=== PATIENT | female | born 1980 | race Caucasian/White ===

== ENCOUNTER 2018-03-17 14:12 | Inpatient (IN) | payer OTHER, MEDICAID ==
[2018-03-17 15:14] LABS: APPEARANCE,URINE CLOUDY; BILIRUBIN,URINE NEGATIVE (NEGATIVE); COLOR,URINE YELLOW; GLUCOSE, URINE NEGATIVE (NEGATIVE); KETONES,URINE NEGATIVE (NEGATIVE); LEUKOCYTE ESTERASE,URINE LARGE (NEGATIVE); NITRITE,URINE NEGATIVE (NEGATIVE); PROTEIN,URINE NEGATIVE (NEGATIVE); URINE SPECIFIC GRAVITY 1.008; UROBILINOGEN,URINE NEGATIVE mg/dL (<2.0)
[2018-03-17] MEDS ORDERED: RINGERS SOLUTION,LACTATED 1,000 ML IV ONE (15:44)
[2018-03-17 15:53] LABS: AMNISURE (ROM) NEGATIVE (NEGATIVE)
[2018-03-17 16:10] LABS: URINE AMPHETAMINES SCREEN NEGATIVE; URINE BARBITURATES SCREEN NEGATIVE; URINE BENZODIAZEPINES SCREEN NEGATIVE; URINE COCAINE SCREEN NEGATIVE; URINE MARIJUANA (THC) SCREEN NEGATIVE; URINE METHADONE SCREEN NEGATIVE; URINE PHENCYCLIDINE SCREEN NEGATIVE
[2018-03-17] MEDS ORDERED: RINGERS SOLUTION,LACTATED 1,000 ML IV PRN (17:11)
[2018-03-17] MEDS ORDERED: OXYTOCIN/NORMAL SALINE 20 UNIT/1,000 ML RTUINJ IV PRN (17:11)
[2018-03-17] MEDS ORDERED: DINOPROSTONE 10 MG VAGINAL INSERT.SR PV PRN (17:11)
[2018-03-17] MEDS ORDERED: PENICILLIN G POTASSIUM 5,000,000 UNIT in DEXTROSE 5%-WATER 100 ML IV ONE (17:11)
[2018-03-17] MEDS ORDERED: RINGERS SOLUTION,LACTATED 300 ML IV ONE (17:11)
--- NOTE | 2018-03-17 17:22 | Admission Physical ---
Datetime Report Generated by CPN: 03/17/2018 17:22 CURRENT ADMISSION Hx Assessment: The History has been Reviewed and is Current Chief Complaint: Sent from OB Office for Evaluation and Treatment - Please Specify Chief Complaint Other: sent for CLAUDIO of 4, then had 4 min decleration Indication for Induction: Maternal Diabetes; Oligohydramnios Admit Impression : Term, Intrauterine ; No Active Labor; Intact Membranes; Induction of Labor Admit Plan: Admit to Unit; Initiate Labor Induction Protocol ALLERGIES Medication Allergies: Yes Medication Allergies: cyclines (acne medications) Latex: No Latex Allergies Food Allergies: none OBSTETRICAL HISTORY EDC: 03/27/2018 00:00 : 1 Para: 0 Term: 0 : 0 SAB: 0 IAB: 0 Ectopic: 0 Livin Cesareans: 0 VBACs: 0 Multiple Births: 0 SEE RECORDS Alcohol: No Marijuana : No Cocaine: No Other Illicit Drugs: No Cigarettes: Never Smoker. [id number] PHYSICAL EXAM General: Normal HEENT: Normal Neurologic: Normal Thyroid: Deferred Heart: Normal Lungs: Normal Breast: Normal Back: Normal Abdomen: Normal Genitourinary Exam: Normal Extremities: Normal DTRs: Normal Pelvic Type: Adequate Vital Signs: Reviewed VAGINAL EXAM Dilatation: 2 Effacement: 60 Station: -2 Contraction Comments: rare MEMBRANES Membranes: Intact FETUS A EGA: 38.4 Monitoring: External US FHR- Baseline: 135 Variability: Moderate 6-25bpm Accelerations: 15X15 Decelerations: Variable FHR Category: Category I Estimated Weight (gm): 3900 Presentation: Vertex Admit Comment: Sent in from office for CLAUDIO of 4.31, had decel here while monitoring. Discussed plan will admit for induction, using cooks cath and pitocin. GBS +, pcn AMA, GDM Hx: scoliosis, will have anesthsia see patient PLANS FOR LABOR AND DELIVERY Labor and Delivery: Plan Pain Management: Natural Feeding Preference: Breast Benefit of Breast Feed Discussed: Yes Circumcision: No INFORMED CONSENT Assignment: Yuridia Cordova MD Signature: with User ID: [email or web address] : with User ID: [email or web address]
[2018-03-17] MEDS ORDERED: PENICILLIN G-K 5 MILLION UNIT VIAL ONE ×2 (18:01→20:11)
[2018-03-17 18:27] LABS: HEMATOCRIT 36.6 % (36.0-47.0); HEMOGLOBIN 12.5 g/dL (12.0-15.5); MEAN CORPUSCULAR HEMOGLOBIN 28.6 pg (27.0-33.4); MEAN CORPUSCULAR HGB CONC 34.2 g/dL (32.0-36.0); MEAN CORPUSCULAR VOLUME 84 fl (80-97); PLATELET COUNT 200 10^3/uL (150-450); RED BLOOD COUNT 4.38 10^6/uL (3.72-5.28); RED CELL DISTRIBUTION WIDTH 15.1 % (11.5-14.0); WHITE BLOOD COUNT 12.6 10^3/uL (4.0-10.5)
[2018-03-17] MEDS ORDERED: MISOPROSTOL 0.2 MG TABLET ONE (19:07)
[2018-03-17] MEDS ORDERED: LIDOCAINE 1% INJ-PF (10 MG/ML) 30 ML SDV ONE (19:07)
[2018-03-17] MEDS ORDERED: OXYTOCIN/NORMAL SALINE 20 UNIT/1,000 ML RTUINJ ONE (19:07)
[2018-03-17] MEDS ORDERED: NALBUPHINE HCL INJ 10 MG/1 ML AMPULE INJ ONE (19:48)
[2018-03-17] MEDS ORDERED: NALBUPHINE HCL INJ 10 MG/1 ML AMPULE ONE (19:50)
[2018-03-17] MEDS: PENICILLIN G POTASSIUM 2,500,000 UNIT in DEXTROSE 5%-WATER 50 ML IV SCH (22:10)
[2018-03-17] MEDS ORDERED: FENTANYL/BUPIVACAINE/NS/PF 300 MCG/150 ML RTUINJ EPI ONE (23:50)
[2018-03-17] MEDS ORDERED: LIDOCAINE 1.5%/EPINEPHRINE INJ-PF 30 ML SDV ONE (23:50)
[2018-03-17] MEDS ORDERED: BUPIVACAINE HCL 0.25 % INJ/PF (2.5 MG/1 ML) 30 ML VIAL ONE (23:50)
[2018-03-17] MEDS ORDERED: EPHEDRINE SULFATE INJ 50 MG/1 ML AMPULE ONE (23:50)
[2018-03-18] MEDS ORDERED: PENICILLIN G-K 5 MILLION UNIT VIAL ONE ×3 (02:03→10:08)
[2018-03-18] MEDS: PENICILLIN G POTASSIUM 2,500,000 UNIT in DEXTROSE 5%-WATER 50 ML IV SCH ×2 (02:05→06:24)
--- NOTE | 2018-03-18 08:36 | L&D Progress Notes ---
PROGRESS NOTES Datetime Report Generated by CPN: 03/18/2018 08:36 PROGRESS NOTE Impression: Normal Progression of Labor Plan: Continue Present Management; Anticipate Vaginal Delivery Informed Consent Obtained: Vaginal Delivery; Risks, Benefits and Alternatives Discussed Vital Signs : Reviewed Comment: 37 yo admitted yesterday for oligo 4.31 EDC /!8 by LMP allergies: cyclines GDM Oligohydramnios GBS positive AMA epidural in place EFW 7 lbs abdomen nontender FHTs reactive c/c/+1 ctxs 3-4 min apart anticipate VAGINAL EXAM Dilatation: 9 Dilatation: 2 Effacement: 100 Effacement: 60 Station: 1 Station: -2 Contractions: rare MEMBRANES Membranes: Ruptured Membranes: Intact FETUS A Monitoring: External US Variability: Moderate 6-25bpm Accelerations: 15X15 Decelerations: None FHR Category: Category I : 38.5 Estimated Weight (gm): 3900 Presentation: Vertex SIGNATURE SIGNATURE: [id number];[id number] SIGNATURE: [id number] Assignment: Yuridia Cordova MD Signature: with User ID: [email or web address] : with User ID: [email or web address]
[2018-03-18] MEDS ORDERED: OXYTOCIN/NORMAL SALINE 20 UNIT/1,000 ML RTUINJ ONE (12:41)
[2018-03-18] MEDS ORDERED: BENZOCAINE/MENTHOL AEROSOL SPRAY 56 ML TOP PRN (14:09)
[2018-03-18] MEDS ORDERED: OXYTOCIN/NORMAL SALINE 20 UNIT/1,000 ML RTUINJ IV PRN (14:09)
[2018-03-18] MEDS ORDERED: MEASLES,MUMPS&RUBELLA VACC/PF 0.5 ML VIAL SUBCUT PRN (14:09)
[2018-03-18] MEDS ORDERED: ZOLPIDEM TARTRATE 5 MG TABLET PO PRN (14:09)
[2018-03-18] MEDS ORDERED: DIBUCAINE 1% OINTMENT 28 GM TP PRN (14:09)
[2018-03-18] MEDS ORDERED: DIPH/PERTUSS(ACELL)/TETANUS VAC/PF 0.5 ML SYR (>=10YO) IM PRN (14:09)
--- NOTE | 2018-03-18 15:22 | Delivery Summary ---
Del Sum A-C Datetime Report Generated by CPN: 03/18/2018 15:22 DELIVERY PERSONNEL DELIVERY PERSONNEL: [id number] Delivery Doctor:: Jonny Root CNM Labor and Delivery Nurse:: PHILLIP Thorpe Labor and Delivery Nurse:: PHILLIP Odom Cable Spooler/NUCLEAR DESIGN ENGINEER: Linda ROCK Strong II MATERNAL INFORMATION Delivery Anesthesia: Epidural Medications After Delivery: Pitocin Bolus-Please Comment; Pitocin Drip 20 Units/1000ml NSS Meds After Delivery Comment: 20 Units Pitocin in 1000 ML NS bolus Estimated Blood Loss (ml): 250 Maternal Complications: None LABOR SUMMARY EDC: 03/27/2018 00:00 No. Babies in Womb: 1 Attempted: Yes Labor Anesthesia: Epidural LABOR INFORMATION Reason for Induction: Maternal Diabetes; Oligohydramnios Onset of Labor: 03/18/2018 00:22 Complete Dilatation: 03/18/2018 08:22 Oxytocin: Induction Group B Beta Strep: Positive Antibiotics # of Doses: 4 Antibiotics Time of Last Dose: 1815/2210/0205/0624/1012 Name of Antibiotic Given: PCN Steroids Given: None Reason Steroids Not Administered: Not Applicable MEMBRANES Membranes Rupture Method: Spontaneous Rupture of Membranes: 03/18/2018 04:37 Length of Rupture (hr): 7.92 Amniotic Fluid Color: Bloody Amniotic Fluid Amount: Small STAGES OF LABOR Stage 1 hr: 8 Stage 1 min: 0 Stage 2 hr: 4 Stage 2 min: 10 Stage 3 hr: 0 Stage 3 min: 12 Total Time in Labor hr: 12 Total Time in Labor min: 22 VAGINAL DELIVERY Episiotomy: None Laceration #1: Perineal Laceration Extension #1: Second Degree CSECTION DELIVERY Primary Indication: N/A Secondary Indication: N/A CSection Incidence: N/A Labor: N/A Elective: N/A CSection Incision: N/A BABY A INFORMATION Delivery Date/Time: 03/18/2018 12:32 Method of Delivery: Vaginal Born in Route : No : N/A Forceps: N/A Vacuum Extraction: N/A Shoulder Dystocia : No PRESENTATION/POSITION BABY A Presentation: Cephalic Cephalic Presentation: Vertex Vertex Position: Left Occipital Anterior PLACENTA INFORMATION BABY A Placenta Delivery Time : 03/18/2018 12:44 Placenta Method of Delivery: Spontaneous Placenta Status: Delivered SCORES BABY A Heart Rate 1 min: >100 bpm Resp Effort 1 min: Good Cry Reflex Irritability 1 min: Cough or Sneeze or Pulls Away Muscle Tone 1 min: Active Motion Color 1 min: Blue/Pale Resuscitation Effort 1 min: Tactile Stimulation SCORE 1 MIN: 8 Heart Rate 5 min: >100 bpm Resp Effort 5 min: Good Cry Reflex Irritability 5 min: Cough or Sneeze or Pulls Away Muscle Tone 5 min: Active Motion Color 5 min: Body Victoria, Extremities Blue Resuscitation Effort 5 min: N/A SCORE 5 MIN: 9 Resuscitation Effort 10 min: N/A INFANT INFORMATION BABY A Gestational Age at Delivery: 38.5 Gestational Status: Early Term- 37- 38.6 Weeks Infant Outcome : Liveborn Infant Condition : Stable Infant Sex: Male IDENTIFICATION BABY A Verification Date/Time: 03/18/2018 12:53 ID Band Number: [id number] Mother's Name Verified: Yes Infant RN Verifying : A Robert RN [place] [facility] WEIGHT/LENGTH BABY A Birthweight (gm): 2930 Weight (lb): 6 Infant Weight (oz): 7 Infant Length (in): 19.00 Length (cm): 48.26 CORD INFORMATION BABY A No. Cord Vessels: 3 Nuchal Cord : N/A Cord Blood Taken: Yes-For Eval (Mom's Blood Type - or O+) Suction: Mouth; Nose ASSESSMENT BABY A Infant Complications: None Physical Findings at Delivery: Caput Succedaneum; Molding of the Head Respirations: Appears Normal Skin to Skin: Yes Mask Designer/ALS Called : No Infant Care By: D [place]av[place] R[facility] Transferred To: Remains with Mother BABY B INFORMATION : N/A
[2018-03-18] MEDS: FERROUS SULFATE 325 MG TABLET PO SCH (17:42)
[2018-03-18] MEDS: DOCUSATE SODIUM 100 MG CAPSULE PO SCH (17:42)
[2018-03-18] MEDS: IBUPROFEN 800 MG TABLET PO SCH (17:42)
[2018-03-19] MEDS: IBUPROFEN 800 MG TABLET PO SCH ×3 (02:25→18:15)
[2018-03-19 07:00] LABS: HEMATOCRIT 32.8 % (36.0-47.0); MEAN CORPUSCULAR HEMOGLOBIN 28.4 pg (27.0-33.4); MEAN CORPUSCULAR HGB CONC 33.6 g/dL (32.0-36.0); MEAN CORPUSCULAR VOLUME 85 fl (80-97); PLATELET COUNT 173 10^3/uL (150-450); RED BLOOD COUNT 3.88 10^6/uL (3.72-5.28); RED CELL DISTRIBUTION WIDTH 14.9 % (11.5-14.0); WHITE BLOOD COUNT 18.2 10^3/uL (4.0-10.5)
--- NOTE | 2018-03-19 09:05 | PDOC PROGRESS REPORT ---
Subjective-OB Progress Note for:: 03/19/18 Subjective: pt bonding well with ff@u-1 mild lochia no complaints Physical Exam (OB) Vital Signs: Temp Pulse Resp BP Pulse Ox 98.1 F 72 18 117/80 96 03/19/18 07:41 03/19/18 07:41 03/19/18 07:41 03/19/18 07:41 03/19/18 07:41 Intake & Output 03/18/18 03/19/18 03/20/18 06:59 06:59 06:59 Weight 80.1 kg - Lochia Lochia Amount: Small 10-25 ml Lochia Color: Rubra/Red - Abdomen Description: Soft, Round Hernia Present: No Fundal Description: Firm, Midline Fundal Height: u/u - u/2 Objective-Diagnostic Laboratory: 03/19/18 06:50 03/19/18 06:50 WBC 18.2 H RBC 3.88 Hgb 11.0 L Hct 32.8 L MCV 85 MCH 28.4 MCHC 33.6 RDW 14.9 H Plt Count 173
[2018-03-19] MEDS: PRENATAL VITAMIN W DHA CAPSULE PO SCH (09:22)
[2018-03-19] MEDS: FERROUS SULFATE 325 MG TABLET PO SCH ×2 (09:22→18:15)
[2018-03-19] MEDS: SENNOSIDES/DOCUSATE 8.6-50 MG 1 EACH TABLET PO SCH (09:22)
[2018-03-19] MEDS: DOCUSATE SODIUM 100 MG CAPSULE PO SCH ×2 (09:23→18:15)
[2018-03-20] MEDS: IBUPROFEN 800 MG TABLET PO SCH ×2 (02:16→11:50)
[2018-03-20 08:18] VITALS: BP 108/63
--- NOTE | 2018-03-20 08:47 | PDOC DISCHARGE SUMMARY ---
Final Diagnosis Discharge Date: 03/20/18 - Final Diagnosis (1) Elderly primigravida Is this a current diagnosis for this admission?: Yes (3) Oligohydramnios Is this a current diagnosis for this admission?: Yes Discharge Data - Discharge Medication Home Medications: 95/Iron Fum/Folic/Dha [ + Dha Combo Pack] 1 tab PO DAILY Reason(s) for Admission: Induction of Labor Procedures: NST, Ultrasound Intrapartum Procedure(s): Spontaneous Vaginal Delivery Complication(s): Laceration-Vaginal Laceration-Degree: 2nd - Diagnosis Test Laboratory: Temp Pulse Resp BP Pulse Ox 97.4 F 66 16 108/63 99 03/20/18 07:58 03/20/18 07:58 03/20/18 07:58 03/20/18 07:58 03/20/18 07:58 03/17/18 03/17/18 03/19/18 14:30 17:29 06:50 RBC 4.38 3.88 Hgb 12.5 11.0 L Hct 36.6 32.8 L Urine Opiates Screen NEGATIVE - Discharge information/Instructions Discharge Activity: Activity As Tolerated Discharge Diet: Regular Disposition: HOME, SELF-CARE Follow up with: [facility] in: 3
[2018-03-20] MEDS: SENNOSIDES/DOCUSATE 8.6-50 MG 1 EACH TABLET PO SCH (11:48)
[2018-03-20] MEDS: FERROUS SULFATE 325 MG TABLET PO SCH (11:48)
[2018-03-20] MEDS: DOCUSATE SODIUM 100 MG CAPSULE PO SCH (11:48)
[2018-03-20] MEDS: PRENATAL VITAMIN W DHA CAPSULE PO SCH (11:49)
== END 2018-03-20 15:47 | disposition home or self-care (01) | DRG 775 ==
LOC: LC 14:12 → LR 17:16 → 2S 03-18 16:13
PROVIDERS: ADMIT Student in an Organized Health Care Education/Training Program; ATTEND Student in an Organized Health Care Education/Training Program
PROC: 10E0XZZ Delivery of Products of Conception, External Approach (ICD-10-PCS; principal; 2018-03-18)
PROC: 0KQM0ZZ Repair Perineum Muscle, Open Approach (ICD-10-PCS; 2018-03-18)
DX: O41.03X0 Oligohydramnios, third trimester, not applicable or unspecified (principal); O76 Abnormality in fetal heart rate and rhythm complicating labor and delivery; O99.824 Streptococcus B carrier state complicating childbirth; O24.420 Gestational diabetes mellitus in childbirth, diet controlled; O70.1 Second degree perineal laceration during delivery; Z3A.38 38 weeks gestation of pregnancy; Z37.0 Single live birth
CPT/HCPCS: 36415; 80307; 81001; 84112; 85027; 86592; 86850; 86900; 86901; C1726; J2300; J2540; J2590; J3010; J3490

== ENCOUNTER 2020-06-12 00:24 | Emergency (ER) | payer BC, MEDICAID, OTHER ==
[2020-06-12] MEDS ORDERED: KETOROLAC TROMETHAMINE INJ/PF 30 MG/1 ML SDV IV ONE (02:48)
[2020-06-12] MEDS ORDERED: ONDANSETRON HCL INJ/PF 4 MG/2 ML SDV IV ONE (02:48)
[2020-06-12] MEDS ORDERED: NORMAL SALINE 1000 ML 1,000 ML IV ONE (03:10)
--- NOTE | 2020-06-12 03:10 | ER Document Report ---
ED GI/ - General TRAVEL OUTSIDE OF THE [place] IN LAST 30 DAYS: No - Related Data Home Medications: lipitor <HENRRYMANUELAFUENTES Jadyn - Last Filed: 06/12/20 17:29> <WILSONDENISANUPAMA A - Last Filed: 06/17/20 15:38> - General Chief Complaint: Flank Pain Stated Complaint: NAUSEA,VOMITING,ABDOMINAL PAIN Time Seen by Provider: 06/12/20 03:09 Primary Care Provider: KISHOR DOMINGUEZY [facility] [Provider Group] - Follow up as needed Notes: Patient is a 39-year-old female who presents emergency department with a chief complaint of left flank pain. Patient states that her symptoms started around 1030 this evening. Patient has history of kidney stones in the past. ([employer]) - Related Data Allergies/Adverse Reactions: acne medications Allergy (Uncoded 06/12/20 02:38) Past Medical History - General Information source: Patient - Social History Smoking Status: Never Smoker Frequency of alcohol use: Occasional Drug Abuse: None Family History: Reviewed & Not Pertinent <[employer] - Last Filed: 06/12/20 17:29> Review of Systems <[employer] SALES - Last Filed: 06/12/20 17:29> - Review of Systems Notes: REVIEW OF SYSTEMS: CONSTITUTIONAL : Denies recent illness. Denies recent unintentional weight loss. Denies fever, chills, or sweats. EENT: Denies eye, ear, throat, or mouth pain, discharge, or symptoms. Denies nasal or sinus congestion. CARDIOVASCULAR: Denies chest pain. RESPIRATORY: Denies shortness of breath, cough, congestion, difficulty breathing, or wheezing. GASTROINTESTINAL: Denies nausea, vomiting, and diarrhea. Denies abdominal pain. Denies constipation. GENITOURINARY: Denies difficulty urinating, burning, blood in urine, urgency or frequency. MUSCULOSKELETAL: See HPI. Denies joint pain or swelling. SKIN: Denies rash, itchiness, or lesions HEMATOLOGIC : Denies easy bruising or bleeding. LYMPHATIC: Denies swollen, painful, enlarged glands. NEUROLOGICAL: Denies no numbness or tingling denies weakness. Denies headache. Denies altered mental status. Denies alteration in speech. PSYCHIATRIC: Denies stress, anxiety, alteration in sleep patterns, or depression. All other systems reviewed and negative. ([employer]) Physical Exam <[employer] - Last Filed: 06/12/20 17:29> - Vital signs Vitals: Temp Pulse Resp BP Pulse Ox 97.9 F 73 16 146/82 H 100 06/12/20 01:18 06/12/20 01:18 06/12/20 01:18 06/12/20 01:18 06/12/20 01:18 - Notes Notes: PHYSICAL EXAMINATION: GENERAL: Appears well, healthy, well-nourished, no acute distress. HEAD: Normocephalic, atraumatic. EYES: PERRL, conjunctiva normal, all extraocular movements intact, sclera nonicteric ENT: Moist mucous membranes. NECK: Supple, no noticeable swelling, redness, rash. Normal range of motion. LUNGS: Equal breath sounds bilaterally and clear to auscultation. No wheezes rales or rhonchi. CARDIOVASCULAR: S1-S2, regular rate, regular rhythm. Radial pulses 2+, normal. ABDOMEN: Normoactive bowel sounds. Soft, nontender, no guarding, no rebound tenderness, and no masses palpated. EXTREMITIES: Normal strength and range of motion, no pitting or edema. No cyanosis. NEUROLOGICAL: Moves all extremities upon command. Strength 5/5 in all ext remities. PSYCH: Normal mood, normal affect. SKIN: Warm, dry. No rash, lesions, ulcerations noted. Normal skin turgor. BACK: Left CVA tenderness. ([employer]) Course - Laboratory Result Diagrams: 06/12/20 04:00 06/12/20 04:00 <[employer] SALES - Last Filed: 06/12/20 17:29> - Laboratory Result Diagrams: 06/12/20 04:00 06/12/20 04:00 <ANUPAMA WILSON - Last Filed: 06/17/20 15:38> - Re-evaluation Re-evalutation: 06/12/20 05:50 Hematology shows a leukocytosis of 17,300 with a left shift with 91% neutrophils. Chemistries are unremarkable. BUN and creatinine are normal. Liver function tests are normal. Lipase is normal and hCG is also normal. Urinalysis is pending. Patient has a 5 mm ureteral stone with left hydronephrosis and hydroureter ureter. Patient states that she did feel little bit better after receiving Toradol, but states that the pain is starting to come back. We will give her dose of Reglan and morphine, as she started to vomit after I gave her her results of her CT scan. 06/12/20 06:38 Urinalysis is unremarkable other than protein and ketones in the urine. Patient received a liter of IV fluids here in the emergency department. Patient will be started on Flomax. She will follow-up with urology. Follow-up precautions were given. Verbal discharge instructions were given to the patient. They verbalized understanding. They are stable for discharge. ([employer]) - Vital Signs Vital signs: Temp Pulse Resp BP Pulse Ox 98.5 F 70 18 116/72 99 06/12/20 06:54 06/12/20 06:54 06/12/20 06:54 06/12/20 06:54 06/12/20 06:54 - Laboratory Laboratory results interpreted by me: 06/12/20 06/12/20 06/12/20 04:00 04:00 05:10 WBC 17.3 H Lymph % (Auto) 5.5 L Craven % (Auto) 2.7 L Absolute Neuts (auto) 15.9 H Seg Neutrophils % 91.7 H Glucose 130 H Urine Protein 30 H Urine Ketones 20 H Urine Ascorbic Acid 40 H Discharge <MANUELA SALESALIYAH Salamanca - Last Filed: 06/12/20 17:29> <ANUPAMA WILSON - Last Filed: 06/17/20 15:38> - Discharge Clinical Impression: Left flank pain, Kidney stone Condition: Stable Disposition: HOME, SELF-CARE Additional Instructions: Your symptoms should improve over the course of the next one week. If you continue to have pain for greater than one week or your pain is not controlled with the pain medications that you have been sent home with you need to return to the emergency department. Please also return if you develop fever, persistent vomiting, or any other symptoms that are concerning to you. You should take ibuprofen 600 mg every 6 hours and use the Percocet as prescribed only for pain not controlled by ibuprofen. You are also been sent home with a medication called Flomax to help pass the stone. You've been given Zofran to assist with nausea. Please follow-up with urology in the next 2-3 days. Prescriptions: Tamsulosin HCl [Flomax 0.4 mg Cap.sr] 0.4 mg PO DAILY #7 cap.sr.24h Oxycodone HCl/Acetaminophen [Percocet 5-325 mg Tablet] 1 tab PO Q6HP PRN #15 tab PRN Reason: Pain Scale Of 5 Ondansetron [Zofran Odt 4 mg Tablet] 1 - 2 tab PO Q4H PRN #30 tab.rapdis PRN Reason: For Nausea/Vomiting Forms: Return to Work Referrals: [facility] [Provider Group] - Follow up as needed
[2020-06-12 04:17] LABS: ABSOLUTE MONOCYTES (AUTO) 0.5 10^3/uL (0.1-1.4); ABSOLUTE NEUT (AUTO) 15.9 10^3/uL (1.7-8.2); BASOPHILS % (AUTO) 0.1 % (0-2); HEMOGLOBIN 12.5 g/dL (12.0-15.5); LYMPHOCYTES % (AUTO) 5.5 % (13-45); MEAN CORPUSCULAR HEMOGLOBIN 28.3 pg (27.0-33.4); MEAN CORPUSCULAR HGB CONC 33.9 g/dL (32.0-36.0); MEAN CORPUSCULAR VOLUME 84 fl (80-97); MONOCYTES % (AUTO) 2.7 % (3-13); PLATELET COUNT 264 10^3/uL (150-450); RED BLOOD COUNT 4.44 10^6/uL (3.72-5.28); RED CELL DISTRIBUTION WIDTH 13.5 % (11.5-14.0); SEGMENTED NEUTROPHILS % (AUTO) 91.7 % (42-78); TOTAL CELLS COUNTED % (AUTO) 100 %; WHITE BLOOD COUNT 17.3 10^3/uL (4.0-10.5)
[2020-06-12 04:32] LABS: ALBUMIN 4.6 g/dL (3.5-5.0); ALKALINE PHOSPHATASE 97 U/L (38-126); ANION GAP 8 (5-19); ASPARTATE AMINO TRANSFERASE 27 U/L (14-36); BILIRUBIN,TOTAL 0.6 mg/dL (0.2-1.3); BLOOD UREA NITROGEN 19 mg/dL (7-20); CALCIUM 9.3 mg/dL (8.4-10.2); CARBON DIOXIDE 25 mmol/L (22-30); CHLORIDE 104 mmol/L (98-107); GLUCOSE 130 mg/dL (75-110); POTASSIUM 4.2 mmol/L (3.6-5.0); TOTAL PROTEIN 7.5 g/dL (6.3-8.2)
--- NOTE | 2020-06-12 04:35 | RADIOLOGY REPORT (SQ) ---
CT ABDOMEN AND PELVIS WITHOUT INTRAVENOUS CONTRAST: 06/12/2020 3:32 AM CDT HISTORY: 39-year old with left-sided flank pain. COMPARISON: None available TECHNIQUE: Axial contiguous images were obtained from the lung bases to the proximal femurs without intravenous contrast administered. Sagittal and coronal reconstructions were also obtained and reviewed. This exam was performed according to our departmental dose-optimization program, which includes automated exposure control, adjustment of the mA and/or KV according to the patient's size and/or use of iterative reconstruction technique. FINDINGS: The lung bases appear clear without evidence of a focal consolidative airspace opacity or effusions. The distal esophagus is patulous. Evaluation of the solid organs is limited by the lack of intravenous contrast. The visualized hepatic parenchyma is unremarkable. The gallbladder demonstrates no evidence of calcified gallstones. The spleen and pancreas are normal in contour. The bilateral adrenal glands appear unremarkable. There is moderate left hydroureteronephrosis secondary to a 5 mm calculus the distal left ureter. This is at least 4 cm from the ureterovesicular junction. There is diffuse stranding around the left kidney, and superimposed infection is not excluded. There are punctate calcified phleboliths within the lower pelvis. No other renal or ureteral calculi are seen. The urinary bladder is mildly distended, and appears grossly unremarkable. The uterus is present. The stomach is not well distended. The small bowel loops appear unremarkable. No pericolonic inflammatory stranding is seen. There are multiple diverticula seen within the sigmoid and descending colon, without evidence to suggest diverticulitis. The appendix appears unremarkable. There is no evidence of pneumoperitoneum or free fluid. The aorta and IVC appear normal in size. No significantly enlarged lymph nodes are seen in the abdomen or pelvis. Review of the bone show no evidence of any suspicious lytic or blastic lesions. IMPRESSION: There is moderate left hydroureteronephrosis secondary to a 5 mm calculus the distal left ureter. This is at least 4 cm from the ureterovesicular junction. There is diffuse stranding around the left kidney, and superimposed infection is not excluded.
[2020-06-12] MEDS ORDERED: HYDROCODONE/ACETAMINOPHEN 5-325 MG TABLET PO ONE (05:25)
[2020-06-12] MEDS ORDERED: METOCLOPRAMIDE HCL INJ/PF 10 MG/2 ML SDV IV ONE (05:34)
[2020-06-12] MEDS ORDERED: MORPHINE SULFATE 10 MG/ML INJ IV ONE (05:34)
[2020-06-12 05:58] LABS: AMORPHOUS SEDIMENT,URINE 1+ /HPF; APPEARANCE,URINE TURBID; BILIRUBIN,URINE NEGATIVE (NEGATIVE); COLOR,URINE YELLOW; GLUCOSE, URINE NEGATIVE (NEGATIVE); KETONES,URINE 20 mg/dL (NEGATIVE); PROTEIN,URINE 30 mg/dL (NEGATIVE); URINE SPECIFIC GRAVITY 1.033; UROBILINOGEN,URINE NEGATIVE mg/dL (<2.0)
[2020-06-12] MEDS ORDERED: ONDANSETRON ODT 4 MG TAB (6 TAB/ER DISP) PO PRN (06:40)
[2020-06-12] MEDS ORDERED: TAMSULOSIN HCL 0.4 MG CAP.SR.24H PO ONE (06:40)
[2020-06-12] MEDS ORDERED: HYDROCODONE/ACETAMINOPHEN 5-325 MG (6 TAB/ER DISP) PO PRN (06:41)
[2020-06-12 06:54] VITALS: BP 116/72
== END 2020-06-12 07:10 | disposition home or self-care (01) ==
LOC: ER 00:24
DX: N13.2 Hydronephrosis with renal and ureteral calculous obstruction (principal); D72.829 Elevated white blood cell count, unspecified
CPT/HCPCS: 99285; 96361; 96374; 96375; 36415; 83690; 84703; 85025; 80053; 81001; 74176; J1885; J2765; J2270; J2405; J7030